=== PATIENT | female | born 1950 | race Caucasian/White ===

== ENCOUNTER → 2016-11-15 | Outpatient (CLI) | payer BC ==
[~2016-11-15] MED LIST: ALPHAGAN P100 DROP/1 RIGHT EYE; AMBIEN10 MG PO; PRED FORTE100 DROP/5 RIGHT EYE; PREVACID30 MG PO; TIMOPTIC-0100 DROP/5 RIGHT EYE; TYLENOL EXTRA500 MG PO; ZYRTEC10 M3 PO
== END | disposition home or self-care (01) ==
LOC: CDC 11:45
DX: R00.1 Bradycardia, unspecified (principal); M20.12 Hallux valgus (acquired), left foot; M21.622 Bunionette of left foot
CPT/HCPCS: 93000

== ENCOUNTER 2017-09-15 14:22 | Inpatient (IN) | payer BC ==
[~2017-09-15] VITALS: Ht 167.6 cm; Wt 98.5 kg
[2017-09-15 15:25] LABS: HEMATOCRIT 41.3 % (36.0-46.0); MCH 30.6 PG (29.0-34.0); MCHC 33.9 G/DL (30.0-36.0); MCV 90.2 FL (83-99); PLATELET COUNT 230 K/uL (156-360); RBC DIS.WIDTH-CV 13.4 % (11.8-14.6); RBC DIS.WIDTH-SD 44.5 % (39-53); RED BLOOD COUNT 4.58 M/uL (3.80-5.20); WHITE BLOOD COUNT 10.1 K/uL (4.1-10.2)
[2017-09-15 15:32] LABS: CHLORIDE 108 mEq/L (99-109); POTASSIUM 3.4 mEq/L (3.7-5.4); SODIUM 143 mEq/L (136-147)
[2017-09-15 15:33] LABS: GLUCOSE 102 mg/dL (70-99)
[2017-09-15 15:37] LABS: CREATININE 0.9 mg/dL (0.6-1.3); GFR ESTIMATE (CALCULATED) > 59 mL/min/
[2017-09-15 15:38] LABS: UREA NITROGEN (BUN) 17 mg/dL (9-23)
[2017-09-15 15:44] LABS: TROP-I INTERPRETATION NEGATIVE; TROPONIN-I < 0.01 ng/mL (0.0-0.30)
[2017-09-15 19:34] LABS: ALBUMIN 4.1 g/dL (3.2-4.8)
[2017-09-15 19:37] LABS: TOTAL PROTEIN 6.6 g/dL (6.4-8.3)
[2017-09-15 19:39] LABS: TOTAL BILIRUBIN 0.8 mg/dL (0.0-1.0)
[2017-09-15 19:40] LABS: ALKALINE PHOSPHATASE 51 IU/L (3-129)
[2017-09-15 19:42] LABS: AST (GOT) 19 IU/L (2-34); DIRECT BILIRUBIN 0.3 mg/dL (0.0-0.3)
[2017-09-15 19:43] LABS: ALT (GPT) 16 IU/L (3-49); LIPASE 19 U/L (1.0-51.0)
[2017-09-15 20:23] LABS: HDL CHOLESTEROL 42 MG/DL (Desirable>=50); LDL CHOLESTEROL 140 mg/dL (Desirable<100); NON-HDL CHOLESTEROL 181 mg/dL (Desirable<160); TOTAL CHOLESTEROL 223 mg/dL (Desirable<200); TRIGLYCERIDES 206 MG/DL (Normal: <150)
[2017-09-15] MEDS ORDERED: ZANTAC150 MG PO (20:40)
[2017-09-15 22:40] VITALS: BP 134/64
[2017-09-15 22:50] LABS: TROP-I INTERPRETATION NEGATIVE; TROPONIN-I < 0.01 ng/mL (0.0-0.30)
[2017-09-16 05:45] LABS: TROP-I INTERPRETATION NEGATIVE; TROPONIN-I < 0.01 ng/mL (0.0-0.30)
[2017-09-16 07:45] VITALS: BP 136/65
[2017-09-16 10:00] LABS: HEMOGLOBIN A1c (GLYCOHEMOGLOB) 5.8 % (Below 5.7)
[2017-09-16 12:00] VITALS: BP 128/80
[2017-09-16 13:06] LABS: HEMATOCRIT 40.4 % (36.0-46.0); HEMOGLOBIN 13.8 G/DL (11.9-15.5); MCH 30.9 PG (29.0-34.0); MCHC 34.2 G/DL (30.0-36.0); MCV 90.6 FL (83-99); PLATELET COUNT 249 K/uL (156-360); RBC DIS.WIDTH-CV 13.8 % (11.8-14.6); RED BLOOD COUNT 4.46 M/uL (3.80-5.20)
[2017-09-16 13:28] LABS: TROP-I INTERPRETATION NEGATIVE; TROPONIN-I < 0.01 ng/mL (0.0-0.30)
[2017-09-16 13:40] LABS: CHLORIDE 106 MEQ/L (99-109); CREATININE 1.1 MG/DL (0.6-1.3); GFR ESTIMATE (CALCULATED) 53 mL/min/; GLUCOSE 137 mg/dL (70-99); POTASSIUM 3.8 MEQ/L (3.7-5.4); SODIUM 141 MEQ/L (136-147); UREA NITROGEN (BUN) 13 mg/dL (9-23)
[2017-09-16 14:49] LABS: THYROTROPIN (TSH) 2.4 MIU/L (0.4-5.5)
[2017-09-16 16:20] LABS: APPEARANCE CLEAR ((CLEAR)); BILIRUBIN NEGATIVE; BLOOD NEGATIVE; COLOR YELLOW ((YELLOW)); GLUCOSE (STRIP) NEGATIVE; KETONES 5; LEUKOCYTES NEGATIVE; NITRITE NEGATIVE; PROTEIN (STRIP) NEGATIVE; UCUL ADDED? NO; UROBILINOGEN 0.2 MG/DL (0.2-1.0)
[2017-09-16 16:51] VITALS: BP 129/71
[2017-09-16 18:53] VITALS: BP 145/70
[2017-09-16 23:43] VITALS: BP 107/52
[2017-09-17 03:42] VITALS: BP 113/56
[2017-09-17 07:18] VITALS: BP 112/55
[2017-09-17 07:58] LABS: HEMATOCRIT 36.7 % (36.0-46.0); HEMOGLOBIN 11.9 G/DL (11.9-15.5); MCH 30.1 PG (29.0-34.0); MCHC 32.4 G/DL (30.0-36.0); MCV 92.7 FL (83-99); PLATELET COUNT 208 K/uL (156-360); RBC DIS.WIDTH-CV 13.9 % (11.8-14.6); RBC DIS.WIDTH-SD 47.8 % (39-53); RED BLOOD COUNT 3.96 M/uL (3.80-5.20); WHITE BLOOD COUNT 5.8 K/uL (4.1-10.2)
[2017-09-17 08:30] LABS: CHLORIDE 109 MEQ/L (99-109); GFR ESTIMATE (CALCULATED) > 59 mL/min/; GLUCOSE 114 mg/dL (70-99); POTASSIUM 3.9 MEQ/L (3.7-5.4); SODIUM 143 MEQ/L (136-147); UREA NITROGEN (BUN) 10 mg/dL (9-23)
[2017-09-17 11:13] VITALS: BP 132/75
[2017-09-17 15:27] VITALS: BP 126/60
[2017-09-17 20:00] VITALS: BP 136/67
[2017-09-18] VITALS: BP 123/58
[2017-09-18 03:31] VITALS: BP 157/75
[2017-09-18 07:11] VITALS: BP 140/83
[2017-09-18] MEDS ORDERED: ANTIVERT25 MG PO (09:49)
[2017-09-18 11:05] VITALS: BP 139/67
[2017-09-18 11:50] VITALS: BP 136/80
== END 2017-09-18 15:25 | disposition home or self-care (01) | DRG 149 ==
LOC: EME 14:22 → EDOF 18:54 → 5WEST 18:54 → EDOF 18:54 → ENRESERV 19:02 → 5WEST 22:17 → ENPENDDIS 09-18 → 5WEST 09-18 15:25
PROVIDERS: Emergency Medicine; Hospitalist; Nurse Practitioner Family
DX: H81.10 Benign paroxysmal vertigo, unspecified ear (principal); D72.829 Elevated white blood cell count, unspecified; R11.2 Nausea with vomiting, unspecified; G43.909 Migraine, unspecified, not intractable, without status migrainosus; I49.3 Ventricular premature depolarization; R26.81 Unsteadiness on feet; E87.6 Hypokalemia; R07.89 Other chest pain; R55 Syncope and collapse; H55.00 Unspecified nystagmus; H93.19 Tinnitus, unspecified ear; I10 Essential (primary) hypertension; E78.5 Hyperlipidemia, unspecified; M19.90 Unspecified osteoarthritis, unspecified site; E66.9 Obesity, unspecified; Z68.35 Body mass index [BMI] 35.0-35.9, adult; K29.70 Gastritis, unspecified, without bleeding; K21.9 Gastro-esophageal reflux disease without esophagitis; Z88.2 Allergy status to sulfonamides; Z88.4 Allergy status to anesthetic agent; Z80.1 Family history of malignant neoplasm of trachea, bronchus and lung; Z80.8 Family history of malignant neoplasm of other organs or systems; Z82.49 Family history of ischemic heart disease and other diseases of the circulatory system; Z83.3 Family history of diabetes mellitus
CPT/HCPCS: 70450; 70551; 71045; 80048; 80061; 80076; 81003; 82948; 83036; 83690; 83735; 84443; 84484; 85027; 93005; 93306; 93880; 94760; 94799; 97530 GP; 99281; 99285; G0378; G8978 GP CJ; G8979 GP CI; J1650; J2405; J2765; J7040; J7042; J7512